=== PATIENT | female | born 1965 | race Caucasian/White ===

== ENCOUNTER 2020-01-25 14:29 | Outpatient (CLI) | payer MEDICARE, MEDICAID, SELFPAY ==
--- NOTE | ~2020-01-25 | MR_ITS ---
EXAMINATION: MR ankle LT wo con DATE: 01/25/2020 15:55 INDICATION: Lateral left ankle pain post twisting injury 2 months prior. TECHNIQUE: Magnetic resonance imaging (MRI) of the left ankle was performed without intravenous contr ast. Sequences included sagittal, coronal, and axial proton-density weighted fast spin echo without a nd with fat saturation. COMPARISON: None. FINDINGS: Medial ankle ligaments: Deep altered ligament is normal. There is mild thickening of the anterior superficial deltoid ligamen t and the superomedial component of the spring ligament complex without significant surrounding edema consistent with scarring related to chronic sprain. Lateral ankle ligaments: The anterior and posterior inferior tibiofibular ligaments are normal. The calcaneofibular and curer foam rubber ior talofibular ligaments are normal. Thickening of the anterior talofibular ligament also without kong rrounding edema consistent with mild scarring related to chronic sprain. Tendons: Achilles tendon is normal. The peroneus longus and brevis tendons are normal. The tibialis anterior a nd extensor hallucis longus and extensor digitorum longus tendons are normal. The tibialis posterior, flexor digitorum longus and flexor hallucis longus tendons are normal. Plantar fascia: Plantar aponeurosis is normal. Bones/other: Bone alignment is normal. Normal marrow signal with no fracture, reactive edema or pathologic marrow replacing process. Joint spaces are normal. Fluid: Physiologic amount fluid in the joint spaces. There is a multilobulated ganglion cyst extending 2.2 c m cephalad from the dorsal aspect of the talonavicular articulation deep to the extensor tendons and measuring 10 x 11 mm in maximal orthogonal dimensions. IMPRESSION: 1. 2.2 x 1.1 x 1.0 cm multilobulated ganglion cyst dorsal to the neck of the talus and arising from t he talonavicular joint. 2. Scarring consistent with chronic sprains laterally at the anterior talofibular ligament and medial ly at the anterior superficial deltoid ligament and superomedial component of the spring ligament com plex. Reviewed, dictated and finalized at location A. IMPRESSION: 1. 2.2 x 1.1 x 1.0 cm multilobulated ganglion cyst dorsal to the neck of the ta ren and arising from the talonavicular joint. 2. Scarring consistent with chronic sprains laterally at the anterior talofibul ar ligament and medially at the anterior superficial deltoid ligament and super omedial component of the spring ligament complex.
== END 2020-01-25 14:30 | disposition home or self-care (01) ==
PROVIDERS: PCP Student in an Organized Health Care Education/Training Program; Visit Provider Student in an Organized Health Care Education/Training Program
DX: M25.572 Pain in left ankle and joints of left foot (principal); M79.89 Other specified soft tissue disorders
CPT/HCPCS: 73721

== ENCOUNTER 2020-03-10 09:08 | Outpatient (CLI) | payer MEDICARE, MEDICAID, SELFPAY ==
--- NOTE | ~2020-03-10 | CT_ITS ---
EXAMINATION: CT abdomen pelvis wo con DATE: 03/10/2020 09:40 INDICATION: Flank pain. TECHNIQUE: Computed tomography (CT) of the abdomen and pelvis was performed without intravenous contr ast. Automated exposure control and iterative reconstruction technique were employed. The dose-length product was 636.51 mGy-cm. COMPARISON: CT abdomen and pelvis 07/15/2018 FINDINGS: The visualized portions of the lung bases demonstrate minimal atelectasis. No pleural effus ion. The heart size is normal. No pericardial effusion. The liver, gallbladder, spleen, pancreas, adr enal glands, and left kidney are normal. There is a 3 mm stone in right kidney. There are no dilated loops of bowel. The appendix is not visualized. There are no pathologically enlarged lymph nodes. The re is no free intraperitoneal fluid. 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 There is mild lumbar spond ylosis. IMPRESSION: 1. 3 mm nonobstructing right kidney stone. Reviewed, dictated and finalized at location A.
== END 2020-03-10 09:09 | disposition home or self-care (01) ==
LOC: ANHIMG 09:20
PROVIDERS: PCP Student in an Organized Health Care Education/Training Program; Visit Provider Student in an Organized Health Care Education/Training Program
DX: N39.0 Urinary tract infection, site not specified (principal); R10.9 Unspecified abdominal pain; N20.0 Calculus of kidney
CPT/HCPCS: 74176

== ENCOUNTER 2020-03-13 18:33 | Emergency (ER) | payer MEDICARE, MEDICAID, SELFPAY ==
--- NOTE | ~2020-03-13 | XR_ITS ---
EXAMINATION: XR abdomen/kub 1V DATE: 03/13/2020 19:52 INDICATION: Right kidney stone. TECHNIQUE: A supine view of the abdomen on 2 radiographs was obtained. COMPARISON: CT abdomen and pelvis 03/10/2020 FINDINGS: There are no dilated loops of bowel. There is no visible urolithiasis. There are phlebolith s in the pelvis. IMPRESSION: 1. No visible urolithiasis. Reviewed, dictated and finalized at location A. L CUTTER IMPRESSION: 1. No visible urolithiasis.
--- NOTE | ~2020-03-13 | CT_ITS ---
EXAMINATION: CT abdomen pelvis wo con DATE: 03/13/2020 21:13 INDICATION: Kidney stone. TECHNIQUE: Computed tomography (CT) of the abdomen and pelvis was performed without intravenous contr ast. Automated exposure control and iterative reconstruction technique were employed. The dose-length product was 1258.62 mGy-cm. COMPARISON: CT abdomen and pelvis 03/10/2020 FINDINGS: The visualized portions of the lung bases demonstrate mild atelectasis. No pleural effusion . The heart size is normal. No pericardial effusion. The liver, gallbladder, spleen, pancreas, adrena l glands, and left kidney are normal. There is 3 mm and 1 mm stones in right kidney. There are no dil ated loops of bowel. There are no pathologically enlarged lymph nodes. There is no free intraperitone al fluid. There is mild thoracolumbar spondylosis. IMPRESSION: 1. Small nonobstructing right kidney stones. Reviewed, dictated and finalized at location A. OR INSTALLER
[2020-03-13 18:36] VITALS: BP 155/67; PULSE 102; RESP 18; TEMP 36.2; O2SAT 100
[2020-03-13 18:52] LABS: Basophils Percent Auto 0.4 % (0.2-1.2); Eosinophils Absolute Auto 0.6 K/mm3 (0-0.3); Eosinophils Percent Auto 7.1 % (0-4.4); Hematocrit 37.2 % (37.0-47.0); Hemoglobin 12.4 g/dL (12.0-15.0); Immature Granulocyte Absolute 0.02 K/mm3 (0.00-0.031); Immature Granulocyte Percent A 0.3 % (0-0.5); Lymphocytes Absolute Auto 2.49 K/mm3 (0.9-3.2); Lymphocytes Percent Auto 32.2 % (18.3-44.2); Mean Corpuscular HGB Conc 33.3 g/dl (32-36); Mean Corpuscular Volume 89.9 fl (80-100); Mean Platelet Volume 9.8 fl (7.4-10.4); Neutrophils Absolute Auto 3.6 K/mm3 (1.3-6.7); Platelet Count Result 301 k/mm3 (150-375); Red Blood Count 4.14 M/mm3 (4.2-5.4); Red Cell Distribution Width 12.6 % (11.5-14.5); White Blood Count 7.7 K/mm3 (4.5-10.0)
[2020-03-13 19:03] LABS: Anion Gap 11 mmol/L (8-16); Blood Urea Nitrogen 14 mg/dL (7-17); Calcium 9.2 mg/dL (8.4-10.2); Carbon Dioxide 26 mmol/L (22-30); Chloride 98 mmol/L (98-107); Estimated CRCL calculation 77 ml/min; Estimated Glomerular Filt Rate > 60; Glucose 104 mg/dL (65-105); Sodium 135 mmol/L (137-145)
--- NOTE | 2020-03-13 19:32 | ED.ABDPAIN ---
HPI - Abdominal Pain General Chief Complaint: Abdominal Pain Stated Complaint: kidney stone pain Time Seen by Provider: 03/13/20 19:27 History of Present Illness HPI narrative: Right lower back pain for several days. Had outpatient CT showing 3 mm non obstructing stone in the right kidney. Her PCP started her on flomax and told her to come here if not feelng better. She is not sure if she has blood in her urine, frequency or dysuria. Related Data Home Medications Medication Instructions Recorded Confirmed carbamazepine 03/13/20 duloxetine mg PO 03/13/20 gabapentin 03/13/20 pregabalin 03/13/20 03/13/20 quetiapine 03/13/20 sumatriptan succinate mg PO 03/13/20 zonisamide 03/13/20 Allergies Allergy/AdvReac Type Severity Reaction Status Date / Time ketorolac Allergy Mild ITCHING Verified 03/13/20 18:39 mirtazapine Allergy Mild Unknown Verified 03/13/20 18:39 vilazodone Allergy Mild Unknown Verified 03/13/20 18:39 amitriptyline Allergy Unknown Unknown Verified 03/13/20 18:39 gabapentin Allergy Unknown Unknown Verified 03/13/20 18:39 haloperidol Allergy Unknown Unknown Verified 03/13/20 18:39 ibuprofen Allergy Unknown MUSCLE Verified 03/13/20 18:39 CRAMPS, NAUSEA lamotrigine Allergy Unknown RASH Verified 03/13/20 18:39 paliperidone Allergy Unknown PRODUCES Verified 03/13/20 18:39 BREAST MILK trazodone Allergy Unknown Unknown Verified 03/13/20 18:39 CYANOCOBALAMIN Allergy Unknown Unknown Uncoded 03/13/20 18:39 DIPHENHYDRAMINE HCL Allergy Unknown RASH Uncoded 01/28/19 09:03 ZOLPIDEM TARTRATE Allergy Unknown Unknown Uncoded 03/13/20 18:39 Review of Systems Review of Systems: All systems reviewed & are unremarkable except as noted in HPI and below Constitutional: Constitutional: Denies fever(s) Cardiovascular: Cardiovascular: Denies chest pain Respiratory: Respiratory: Denies dyspnea Gastrointestinal: Gastrointestinal: Denies abdominal pain Musculoskeletal: Musculoskeletal: Reports back pain Neurologic: Denies weakness PMFSH Past Medical History Medical History (Updated 03/14/20 @ 03:16 by David Haley MD) Bipolar disorder Fibromyalgia HTN (hypertension) Migraine Social History Social History Gender identity (if verbalized by the patient): Female Exam Const: General: healthy appearing, no acute distress and alert Orientation/consciousness: patient oriented x3 HENMT: Head: normal to inspection Neck: Neck: normal visual inspection and no lymphadenopathy Chest: Chest palpation & inspection: no tenderness Resp: Effort & Inspection: normal respiratory effort Auscultation: clear to auscultation bilaterally, no rales, no rhonchi and no wheezes Cardio: Jugular venous distension: no JVD Rate: regular rate Rhythm: regular rhythm Heart sounds: no murmurs GI: Inspection: non-distended GI Palp: Yes Soft to palpation and No Tenderness to palpation present (GI) Back/Spine/Pelvis: Back: CVA tenderness (Right) Skin: General skin exam: normal color Neuro: General: patient oriented x3 and moves all extremities Speech: normal speech Extrem: General: no edema Psych: Appearance: well kempt Affect: Anxious affect present Course Vital Signs Vital signs: Vital Signs Temperature 36.2 C L 03/13/20 18:36 Pulse Rate 102 H 03/13/20 18:36 Respiratory Rate 18 03/13/20 18:36 Blood Pressure 155/67 H 03/13/20 18:36 Pulse Oximetry 100 03/13/20 18:36 Temperature 37.1 C 03/13/20 22:38 Pulse Rate 82 03/13/20 22:38 Respiratory Rate 16 03/13/20 22:38 Blood Pressure 114/65 03/13/20 22:38 Pulse Oximetry 99 03/13/20 22:38 MDM - Abdominal Pain MDM Narrative Medical decision making narrative: SHe has a h/o low back pain. I feel that this is most likely related to that. It is not likely that her nonobstructing stone is causing her pain. Medical Records Attestation: I reviewed the patient's medical records. Lab Data Attestation: I reviewed t
[2020-03-13 20:39] LABS: Add Urine Microscopic? YES; Appearance Urine Clear (Clear); Bilirubin Urine Negative (Negative); Blood Urine Negative (Negative); Color Urine Yellow (Yellow); Glucose Urine UA Negative (Negative); Ketones Urine Negative (Negative); Leukocyte Esterase Ur Trace LEU/UL (Negative); Mucus Urine Rare /lpf; Nitrate Urine Negative (Negative); Protein Urine 1+ mg/dL (Negative); RBC Urine 0-2 /hpf (0-2); Specific Grav Ur 1.024 (1.001-1.035); Squamous Epithelial Cell Urine Rare /hpf (Few); Urobilinogen Urine Negative mg/dL (<2.0)
[2020-03-13 22:38] VITALS: BP 114/65; PULSE 82; RESP 16; TEMP 37.1; O2SAT 99
== END 2020-03-13 22:39 | disposition home or self-care (01) ==
PROVIDERS: Emergency Medicine; Emergency Provider Emergency Medicine; PCP Student in an Organized Health Care Education/Training Program
DX: M54.5 Low back pain (principal); N20.0 Calculus of kidney; F31.9 Bipolar disorder, unspecified; M79.7 Fibromyalgia; I10 Essential (primary) hypertension
CPT/HCPCS: 36415; 74018; 74176; 80048; 81001; 85025; 96365; 99284; J0131

== ENCOUNTER 2020-07-05 13:54 | Emergency (ER) | payer MEDICARE, MEDICAID, SELFPAY ==
--- NOTE | ~2020-07-05 | XR_ITS ---
EXAMINATION: XR foot LT min 3V DATE: 07/05/2020 14:37 INDICATION: Dropped heavy object onto the left foot TECHNIQUE: Dorsoplantar, two oblique and lateral views of the left foot were obtained. COMPARISON: None. FINDINGS: Alignment is normal. No fracture. Mild osteoarthritis at the first metatarsophalangeal and multiple i nterphalangeal joints. Small plantar calcaneal spur. Mild soft tissue swelling over the dorsum of the forefoot. IMPRESSION: 1. No acute osseous abnormality. Reviewed, dictated and finalized at location A. VISION NEWS VIDEO EDITOR
[2020-07-05 14:24] VITALS: BP 124/63; PULSE 85; RESP 16; TEMP 37.9; O2SAT 97
[2020-07-05 14:35] VITALS: BP 124/63; PULSE 85; RESP 16; TEMP 37.9; O2SAT 97
--- NOTE | 2020-07-05 14:51 | ED.LOWEXIN ---
HPI - Extremity Injury (Lower) General Chief Complaint: Extremity Injury, Lower Stated Complaint: left foot Time Seen by Provider: 07/05/20 14:02 Source: patient Mode of arrival: ambulatory Limitations: no limitations History of Present Illness HPI Narrative: 54-year-old female presents to [facility] with complaints of left foot pain, bruising and abrasion to dorsal aspect of left foot since last night. patient states that the symptoms started after a bench fell on her foot at her home. Patient has been elevating her foot and applying ice with minimal relief. Patient reports that she also started with a low-grade fever, body aches and shills since this AM. Patient denies cough, congestion, shortness of breath, wheezing, nausea, vomiting or diarrhea. 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 Patient reports that she had Covid back in March. Patient reports that she did receive an infusion yesterday for her neuropathy reports that she does sometimes run fevers afterwards. Patient denies sick contacts. Patient denies recent travel. MD complaint: foot injury Onset (ago): day(s) (1) Injury: Left: foot Place: home Relieving factors: nothing Exacerbating factors: weight bearing and movement Related Data Home Medications Medication Instructions Recorded Confirmed duloxetine 30 mg PO DAILY 03/13/20 gabapentin 400 mg PO QID 03/13/20 pregabalin 200 mg PO TID 03/13/20 03/13/20 quetiapine 300 mg PO HS 03/13/20 sumatriptan succinate 100 mg PO Q12H PRN 03/13/20 zonisamide 100 mg PO BID 03/13/20 atorvastatin 80 mg PO DAILY 07/05/20 07/05/20 cetirizine 10 mg PO DAILY 07/05/20 07/05/20 fluticasone propionate 1 spray INTRANASAL DAILY 07/05/20 07/05/20 immune globul G-gly-IgA avg 46 1,050 ml IV MONTHLY 07/05/20 07/05/20 [Gamunex-C] lisinopril-hydrochlorothiazide 1 tablet PO DAILY 07/05/20 07/05/20 onabotulinumtoxinA [Botox] 100 unit IM Q3M 07/05/20 07/05/20 ondansetron HCl 4 mg PO Q6H PRN 07/05/20 07/05/20 oxycodone 5 mg PO Q12H PRN 07/05/20 07/05/20 pantoprazole 40 mg PO BID 07/05/20 07/05/20 tamsulosin 0.4 mg PO DAILY 07/05/20 07/05/20 tizanidine 4 mg PO BID 07/05/20 07/05/20 Allergies Allergy/AdvReac Type Severity Reaction Status Date / Time ketorolac Allergy Mild ITCHING Verified 03/13/20 18:39 mirtazapine Allergy Mild Unknown Verified 03/13/20 18:39 vilazodone Allergy Mild Unknown Verified 03/13/20 18:39 amitriptyline Allergy Unknown Unknown Verified 03/13/20 18:39 gabapentin Allergy Unknown Unknown Verified 07/05/20 14:19 haloperidol Allergy Unknown Unknown Verified 03/13/20 18:39 ibuprofen Allergy Unknown MUSCLE Verified 03/13/20 18:39 CRAMPS, NAUSEA lamotrigine Allergy Unknown RASH Verified 03/13/20 18:39 paliperidone Allergy Unknown PRODUCES Verified 03/13/20 18:39 BREAST MILK trazodone Allergy Unknown Unknown Verified 03/13/20 18:39 Sulfa (Sulfonamide Allergy Unknown Verified 07/05/20 14:19 Antibiotics) CYANOCOBALAMIN Allergy Unknown Unknown Uncoded 03/13/20 18:39 DIPHENHYDRAMINE HCL Allergy Unknown RASH Uncoded 01/28/19 09:03 ZOLPIDEM TARTRATE Allergy Unknown Unknown Uncoded 03/13/20 18:39 Review of Systems Constitutional: Constitutional: Reports chills, Reports fatigue, Reports fever(s) and Denies weakness ENT: Denies dizziness, Denies nasal congestion and Denies sore throat Cardiovascular: Cardiovascular: Denies chest pain, Denies rapid heart rate and Denies slow heart rate Respiratory: Respiratory: Denies cough, Denies dyspnea and Denies wheezing Gastrointestinal: Gastrointestinal: Denies abdominal pain, Denies diarrhea, Denies nausea and Denies vomiting Musculoskeletal: Musculoskeletal: Reports arthralgias Comments: left foot pain Integumentary/Breasts: Skin/Breast: Denies rash Neurologic: Denies vertigo and Denies dizziness PMFSH Past Medical History Medical History Bipolar disorder Fibromyal
== END 2020-07-05 15:08 | disposition home or self-care (01) ==
PROVIDERS: Emergency Provider Nurse Practitioner Family; PCP Student in an Organized Health Care Education/Training Program
DX: M79.672 Pain in left foot (principal); R50.9 Fever, unspecified; M79.7 Fibromyalgia; I10 Essential (primary) hypertension; F31.9 Bipolar disorder, unspecified
CPT/HCPCS: 73630; 81003; 87077; 87086; 87088; 99213; G0463

== ENCOUNTER 2021-05-17 09:55 | Emergency (ER) | payer MEDICARE, MEDICAID, SELFPAY ==
[2021-05-17 10:10] VITALS: BP 131/67; PULSE 84; RESP 16; TEMP 36.6; O2SAT 100
--- NOTE | 2021-05-17 11:38 | ED.URI ---
HPI - URI/Sore Throat General Chief Complaint: Upper Respiratory Infection Stated Complaint: sob Time Seen by Provider: 05/17/21 11:38 Source: patient, RN notes reviewed and old records reviewed Mode of arrival: ambulatory Limitations: no limitations History of Present Illness HPI Narrative: 55-year-old female who presents to [facility] with complaints of headache, scratchy throat, nasal drainage, headache,cough with expectoration of yellowish-green mucus for the past 2 days. Patient states she has had Covid vaccination has not had flu vaccine, last Covid testing done was 1 week ago. Patient states cough is productive and she has pressure in her chest with the cough voice is hoarse and throat is painful. Patient has not taken any [id number] medications is prone to migraines with any type of Tylenol or ibuprofen use. MD elicited complaint: cough and other (Scratchy throat) Related Data Home Medications Medication Instructions Recorded Confirmed duloxetine 60 mg PO DAILY 03/13/20 05/17/21 gabapentin 400 mg PO QID 03/13/20 05/17/21 pregabalin 200 mg PO TID 03/13/20 05/17/21 quetiapine 300 mg PO HS 03/13/20 05/17/21 zonisamide 100 mg PO BID 03/13/20 05/17/21 atorvastatin 80 mg PO DAILY 07/05/20 05/17/21 cetirizine 10 mg PO DAILY 07/05/20 05/17/21 fluticasone propionate 1 spray INTRANASAL DAILY 07/05/20 05/17/21 immune globul G-gly-IgA avg 46 1,050 ml IV MONTHLY 07/05/20 05/17/21 [Gamunex-C] lisinopril-hydrochlorothiazide 1 tablet PO DAILY 07/05/20 05/17/21 onabotulinumtoxinA [Botox] 100 unit IM Q3M 07/05/20 05/17/21 ondansetron HCl 4 mg PO Q6H PRN 07/05/20 05/17/21 oxycodone 5 mg PO Q12H PRN 07/05/20 05/17/21 pantoprazole 40 mg PO BID 07/05/20 05/17/21 tizanidine 4 mg PO BID 07/05/20 05/17/21 rimegepant [Nurtec ODT] 75 mg PO ONCE PRN 05/17/21 05/17/21 Allergies Allergy/AdvReac Type Severity Reaction Status Date / Time ketorolac Allergy Mild ITCHING Verified 05/17/21 11:27 mirtazapine Allergy Mild Unknown Verified 05/17/21 11:27 vilazodone Allergy Mild Unknown Verified 05/17/21 11:27 amitriptyline Allergy Unknown Unknown Verified 05/17/21 11:27 gabapentin Allergy Unknown Unknown Verified 05/17/21 11:27 haloperidol Allergy Unknown Unknown Verified 05/17/21 11:27 ibuprofen Allergy Unknown MUSCLE Verified 05/17/21 11:27 CRAMPS, NAUSEA lamotrigine Allergy Unknown RASH Verified 05/17/21 11:27 paliperidone Allergy Unknown PRODUCES Verified 05/17/21 11:27 BREAST MILK trazodone Allergy Unknown Unknown Verified 05/17/21 11:27 Sulfa (Sulfonamide Allergy Unknown Verified 05/17/21 11:27 Antibiotics) CYANOCOBALAMIN Allergy Unknown Unknown Uncoded 03/13/20 18:39 DIPHENHYDRAMINE HCL Allergy Unknown RASH Uncoded 01/28/19 09:03 ZOLPIDEM TARTRATE Allergy Unknown Unknown Uncoded 03/13/20 18:39 Review of Systems Review of Systems: CONSTITUTIONAL: Positive fever, chills, or sweats. EYES: Denies visual changes, redness, or discharge. ENT: Positive rhinorrhea, congestion, sore throat, no otalgia. CARDIOVASCULAR: Positive chest pressure with cough, no palpitations, or edema. RESPIRATORY: Positive cough or dyspnea. GASTROINTESTINAL: Denies abdominal pain, nausea, vomiting, or diarrhea. GENITOURINARY: Denies dysuria or hematuria. SKIN: Denies rash or itching. MUSCULOSKELETAL: Denies back pain, joint pain, body aches NEUROLOGIC: Positive headache, no numbness, or weakness. PSYCHIATRIC Positive for history of anxiety or depression. All systems reviewed & are unremarkable except as noted in HPI and below PMFSH Past Medical History Medical History (Updated 05/18/21 @ 00:00 by Roby Miner) Bipolar disorder Fibromyalgia HTN (hypertension) Migraine Surgical History Surgical History (Updated 05/18/21 @ 06:40 by Dorinda Gill NP) H/O tubal ligation History of inguinal hernia repair Hx of arthroscopy of right knee Family History Family History (Updated 05/18/21 @ 06:40 by Dorinda Gill NP) Sibling
== END 2021-05-17 12:40 | disposition home or self-care (01) ==
PROVIDERS: Emergency Provider Registered Nurse; PCP Student in an Organized Health Care Education/Training Program
DX: J32.9 Chronic sinusitis, unspecified (principal); J02.9 Acute pharyngitis, unspecified; Z20.822 Contact with and (suspected) exposure to COVID-19; M79.7 Fibromyalgia; I10 Essential (primary) hypertension; F31.9 Bipolar disorder, unspecified
CPT/HCPCS: 87081; 87426; 87880; 99213; C9803; G0463

== ENCOUNTER 2021-07-11 16:10 | Emergency (ER) | payer MEDICARE, MEDICAID, SELFPAY ==
--- NOTE | ~2021-07-11 | XR_ITS ---
EXAMINATION: XR hand LT min 3V EXAM DATE: 07/11/2021 16:30 INDICATION: Injury/pain X 3 Weeks Ago, Pain In 5th Digit . TECHNIQUE: Left hand frontal, lateral and oblique projections obtained and reviewed. There is no stephanie or study for comparison. FINDINGS: Left 5th metacarpal base contour which could be old or possibly subacute fracture, check fo r point tenderness. This finding has been indicated, marked on the examination for review, clinical c orrelation. No other suspicious findings, fingers are unremarkable aside from mild polyarticular prim mic osteoarthritis. IMPRESSION: Left 5th metacarpal base shape suspected more likely chronic and subacute finding. Reviewed, dictated and finalized at location B. IC HEALTH TECHNICIAN IMPRESSION: Left 5th metacarpal base shape suspected more likely chronic and s ubacute finding.
[2021-07-11 16:15] VITALS: BP 168/98; PULSE 106; RESP 17; TEMP 36.4; O2SAT 98
--- NOTE | 2021-07-11 16:23 | ED.GENADULT ---
HPI - General Adult General Chief complaint: Unspecified Stated complaint: thumb pain x 3 weeks Time Seen by Provider: 07/11/21 16:24 Source: patient Mode of arrival: ambulatory Limitations: no limitations History of Present Illness HPI narrative: Patient is a 55-year-old female that presents to the emergency department for evaluation of left thumb pain. Patient states that she initially injured her thumb when she was scraping ice off of her car 4 weeks ago. Patient reports pain at the site, worsening pain with movement. Pain is sharp, aching in nature in the left thumb. No radiation into the wrist. No associated swelling, redness. Patient did not fall or otherwise injure it. Patient has been taking ibuprofen, Tylenol with minimal improvement in her symptoms. Patient states she came to the emergency department today to make sure that there was no broken bone. Patient denies any overlying color change, bruising. No significant swelling. She denies numbness or weakness. Patient does report history of broken bone base of left fifth digit. Related Data Home Medications Medication Instructions Recorded Confirmed duloxetine 60 mg PO DAILY 03/13/20 05/17/21 gabapentin 400 mg PO QID 03/13/20 05/17/21 pregabalin 200 mg PO TID 03/13/20 05/17/21 quetiapine 300 mg PO HS 03/13/20 05/17/21 zonisamide 100 mg PO BID 03/13/20 05/17/21 atorvastatin 80 mg PO DAILY 07/05/20 05/17/21 cetirizine 10 mg PO DAILY 07/05/20 05/17/21 fluticasone propionate 1 spray INTRANASAL DAILY 07/05/20 05/17/21 immune globul G-gly-IgA avg 46 1,050 ml IV MONTHLY 07/05/20 05/17/21 [Gamunex-C] lisinopril-hydrochlorothiazide 1 tablet PO DAILY 07/05/20 05/17/21 onabotulinumtoxinA [Botox] 100 unit IM Q3M 07/05/20 05/17/21 ondansetron HCl 4 mg PO Q6H PRN 07/05/20 05/17/21 oxycodone 5 mg PO Q12H PRN 07/05/20 05/17/21 pantoprazole 40 mg PO BID 07/05/20 05/17/21 tizanidine 4 mg PO BID 07/05/20 05/17/21 rimegepant [Nurtec ODT] 75 mg PO ONCE PRN 05/17/21 05/17/21 Allergies Allergy/AdvReac Type Severity Reaction Status Date / Time ketorolac Allergy Mild ITCHING Verified 05/17/21 11:27 mirtazapine Allergy Mild Unknown Verified 05/17/21 11:27 vilazodone Allergy Mild Unknown Verified 05/17/21 11:27 amitriptyline Allergy Unknown Unknown Verified 05/17/21 11:27 gabapentin Allergy Unknown Unknown Verified 05/17/21 11:27 haloperidol Allergy Unknown Unknown Verified 05/17/21 11:27 ibuprofen Allergy Unknown MUSCLE Verified 05/17/21 11:27 CRAMPS, NAUSEA lamotrigine Allergy Unknown RASH Verified 05/17/21 11:27 paliperidone Allergy Unknown PRODUCES Verified 05/17/21 11:27 BREAST MILK trazodone Allergy Unknown Unknown Verified 05/17/21 11:27 Sulfa (Sulfonamide Allergy Unknown Verified 05/17/21 11:27 Antibiotics) CYANOCOBALAMIN Allergy Unknown Unknown Uncoded 03/13/20 18:39 DIPHENHYDRAMINE HCL Allergy Unknown RASH Uncoded 01/28/19 09:03 ZOLPIDEM TARTRATE Allergy Unknown Unknown Uncoded 03/13/20 18:39 Review of Systems Review of Systems: CONSTITUTIONAL: Denies fever CARDIOVASCULAR: Denies chest pain RESPIRATORY: Denies cough or dyspnea. GASTROINTESTINAL: Denies abdominal pain SKIN: Denies rash MUSCULOSKELETAL: Denies back pain, reports left thumb pain NEUROLOGIC: Denies headache PMFSH Past Medical History Medical History Bipolar disorder Fibromyalgia HTN (hypertension) Migraine Surgical History Surgical History H/O tubal ligation History of inguinal hernia repair Hx of arthroscopy of right knee Family History Family History Sibling Acute myocardial infarction Mother Diabetes mellitus Father Diabetes mellitus Other Hypertension Social History Social History Smoking status: Never smoker Gender identity (if verbalized by
== END 2021-07-11 17:15 | disposition home or self-care (01) ==
LOC: ANHED 17:21
PROVIDERS: Emergency Provider Emergency Medicine; PCP Student in an Organized Health Care Education/Training Program
DX: S66.012A Strain of long flexor muscle, fascia and tendon of left thumb at wrist and hand level, initial encounter (principal); I10 Essential (primary) hypertension; M79.7 Fibromyalgia; F31.9 Bipolar disorder, unspecified
CPT/HCPCS: 73130; 99283

== ENCOUNTER 2022-10-02 10:07 | Emergency (ER) | payer MEDICARE, MEDICAID, SELFPAY ==
[2022-10-02 10:22] VITALS: BP 104/59; PULSE 115; RESP 16; TEMP 38.3; O2SAT 97
--- NOTE | 2022-10-02 10:32 | ED.ABDPAIN ---
HPI - Abdominal Pain General Chief Complaint: Abdominal Pain Stated Complaint: Abdominal Pain/Nausea/ Vomiting/Diarrhea Time Seen by Provider: 10/02/22 10:30 Source: patient and RN notes reviewed Mode of arrival: ambulatory Limitations: no limitations History of Present Illness HPI narrative: 57-year-old female presents with concern for left upper quadrant abdominal pain, vomiting, diarrhea. Reports symptoms started 3 days ago. Reports she began getting a low-grade temperature last night. She reports decreased urine output, decreased oral intake. She denies taking any medications for her symptoms. MD elicited complaint: abdominal pain Related Data Home Medications Medication Instructions Recorded Confirmed duloxetine 30 mg capsule,delayed 60 mg PO DAILY 03/13/20 10/02/22 release gabapentin 400 mg capsule 400 mg PO QID 03/13/20 10/02/22 pregabalin 200 mg capsule 200 mg PO BID 03/13/20 10/02/22 quetiapine 300 mg tablet 300 mg PO HS 03/13/20 10/02/22 zonisamide 100 mg capsule 100 mg PO BID 03/13/20 10/02/22 atorvastatin 80 mg tablet 80 mg PO DAILY 07/05/20 10/02/22 cetirizine 10 mg tablet 10 mg PO DAILY 07/05/20 10/02/22 fluticasone propionate 50 1 spray intranasal DAILY 07/05/20 10/02/22 mcg/actuation nasal spray,suspension onabotulinumtoxinA 100 unit 100 unit IM Q3M 07/05/20 10/02/22 solution for injection (Botox) ondansetron HCl 4 mg tablet 4 mg PO Q6H PRN Nausea 07/05/20 10/02/22 oxycodone 5 mg tablet 5 mg PO Q12H PRN Pain 07/05/20 10/02/22 pantoprazole 40 mg tablet,delayed 40 mg PO BID 07/05/20 10/02/22 release tizanidine 4 mg tablet 4 mg PO BID 07/05/20 10/02/22 rimegepant 75 mg disintegrating 75 mg PO ONCE PRN Migraine Headache 05/17/21 10/02/22 tablet (Nurtec ODT) buspirone 15 mg tablet 15 mg TID 10/02/22 10/02/22 lisinopril 10 mg tablet 10 mg DAILY 10/02/22 10/02/22 Allergies Allergy/AdvReac Type Severity Reaction Status Date / Time ketorolac Allergy Mild ITCHING Verified 10/02/22 10:26 mirtazapine Allergy Mild Unknown Verified 10/02/22 10:26 vilazodone Allergy Mild Unknown Verified 10/02/22 10:26 amitriptyline Allergy Unknown Unknown Verified 10/02/22 10:26 gabapentin Allergy Unknown Unknown Verified 10/02/22 10:26 haloperidol Allergy Unknown Unknown Verified 10/02/22 10:26 ibuprofen Allergy Unknown MUSCLE Verified 10/02/22 10:26 CRAMPS, NAUSEA lamotrigine Allergy Unknown RASH Verified 10/02/22 10:26 paliperidone Allergy Unknown PRODUCES Verified 10/02/22 10:26 BREAST MILK trazodone Allergy Unknown Unknown Verified 10/02/22 10:26 Sulfa (Sulfonamide Allergy Unknown Verified 10/02/22 10:26 Antibiotics) CYANOCOBALAMIN Allergy Unknown Unknown Uncoded 10/02/22 10:26 DIPHENHYDRAMINE HCL Allergy Unknown RASH Uncoded 10/02/22 10:26 ZOLPIDEM TARTRATE Allergy Unknown Unknown Uncoded 10/02/22 10:26 Review of Systems Review of Systems: CONSTITUTIONAL: Reports malaise, fever. ENT: Denies rhinorrhea, congestion, sinus pain, otalgia or sore throat. CARDIOVASCULAR: Denies chest pain, palpitations, or edema. RESPIRATORY: Denies cough or dyspnea. GASTROINTESTINAL: Reports left upper quadrant abdominal pain, nausea, vomiting, diarrhea GENITOURINARY: Denies dysuria or hematuria. Reports decreased urine output MUSCULOSKELETAL: Denies myalgia. NEUROLOGIC: Denies headache. All systems reviewed & are unremarkable except as noted in HPI and below PMFSH Past Medical History Medical History Bipolar disorder Fibromyalgia HTN (hypertension) Migraine Surgical History Surgical History H/O tubal ligation History of inguinal hernia repair Hx of arthroscopy of right knee Family History Family History Sibling Acute myocardial infarction Mother Diabetes mellitus Father Diabetes mellitus Other Hypertension Social His
== END 2022-10-02 10:43 | disposition short-term general hospital (02) ==
PROVIDERS: Emergency Provider Nurse Practitioner; PCP Student in an Organized Health Care Education/Training Program
DX: R10.12 Left upper quadrant pain (principal); M79.7 Fibromyalgia; I10 Essential (primary) hypertension; F31.9 Bipolar disorder, unspecified
CPT/HCPCS: 99212; G0463

== ENCOUNTER 2022-10-02 10:59 | Observation (INO) | payer MEDICARE, MEDICAID, SELFPAY ==
[2022-10-02] VITALS (7 sets, daily range): BP systolic 106–143; BP diastolic 54–69; PULSE 87–120; RESP 16–20; TEMP 36.5–37.3; O2SAT 95–100; BMI 49.4
--- NOTE | ~2022-10-02 | CT_ITS ---
EXAMINATION: CT abdomen pelvis wo con DATE: 10/02/2022 14:57 INDICATION: Left upper quadrant pain TECHNIQUE: Computed tomography (CT) of the abdomen and pelvis was performed without intravenous contr ast. The dose-length product was 1514.36 mGy-cm. Automated exposure control and iterative reconstruction technique were employed. COMPARISON: CT dated 03/13/2020 FINDINGS: Lung bases are unremarkable. Heart size normal. No significant pleural or pericardial effus ion. No significant vascular abnormality. No lymphadenopathy. The liver, spleen, pancreas, adrenal gl ands are unremarkable. There are punctate nonobstructing bilateral renal stones. Gallbladder contains high density debris which may represent stones or sludge. Nonobstructive bowel gas pattern. There is a long segment of abnormal thickening of the transverse an d descending colon, consistent with colitis, most likely infectious or inflammatory. No free air or f ree fluid. There is facet hypertrophy with degenerative spondylolisthesis at L4-5. There is sacraliza tion of L5. IMPRESSION: 1. Abnormal thickening of the transverse and descending colon, consistent with colitis, most likely i nfectious or inflammatory. 2: Nonobstructing bilateral nephrolithiasis. Reviewed, dictated and finalized at location B. IMPRESSION: 1. Abnormal thickening of the transverse and descending colon, consistent with colitis, most likely infectious or inflammatory. 2: Nonobstructing bilateral nephrolithiasis.
[2022-10-02 12:04] LABS: Basophils Percent Auto 0.2 % (0.2-1.2); Eosinophils Absolute Auto 0.3 K/mm3 (0-0.3); Eosinophils Percent Auto 1.2 % (0-4.4); Hemoglobin 12.1 g/dL (12.0-15.0); Immature Granulocyte Absolute 0.09 K/mm3 (0.00-0.031); Immature Granulocyte Percent A 0.4 % (0-0.5); Lymphocytes Percent Auto 15.3 % (18.3-44.2); Mean Corpuscular HGB Conc 32.7 g/dl (32-36); Mean Corpuscular Hemoglobin 28.1 pg (26-34); Mean Platelet Volume 10.4 fl (7.4-10.4); Monocytes Absolute Auto 1.8 K/mm3 (0.1-0.6); Monocytes Percent Auto 9.1 % (2.6-8.5); Neutrophils Absolute Auto 14.9 K/mm3 (1.3-6.7); Neutrophils Percent Auto 73.8 % (45.5-73.1); Platelet Count Result 306 k/mm3 (150-375); Red Cell Distribution Width 14.6 % (11.5-14.5); White Blood Count 20.2 K/mm3 (4.5-10.0)
[2022-10-02 12:14] LABS: Alanine Aminotransferase 22 U/L (6-35); Albumin Level 4.3 g/dL (3.5-5.1); Alkaline Phosphatase 146 U/L (38-126); Anion Gap 11 mmol/L (8-16); Aspartate Amino Transferase 19 U/L (14-36); Bilirubin,Total 1.1 mg/dL (0.2-1.3); Blood Urea Nitrogen 16 mg/dL (7-17); Calcium 8.8 mg/dL (8.4-10.2); Carbon Dioxide 21 mmol/L (22-30); Chloride 104 mmol/L (98-107); Estimated CRCL calculation 51 ml/min; Estimated Glomerular Filt Rate 42; Glucose 113 mg/dL (65-110); Lipase 51 U/L (23-300); Potassium 3.8 mmol/L (3.4-5.0); Sodium 136 mmol/L (137-145)
[2022-10-02 12:24] LABS: Appearance Urine Cloudy (Clear); Bacteria Urine None Seen /hpf; Bilirubin Urine Negative (Negative); Blood Urine Negative (Negative); Color Urine Yellow (Yellow); Glucose Urine UA Negative (Negative); Ketones Urine Negative (Negative); Leukocyte Esterase Ur 2+ LEU/UL (Negative); Nitrate Urine Negative (Negative); Protein Urine 2+ mg/dL (Negative); Specific Grav Ur 1.017 (1.001-1.035); Squamous Epithelial Cell Urine Moderate /hpf (Few); WBC Urine 21-50 /hpf; pH Urine 5.5 (5.0-9.0)
[2022-10-02 12:37] LABS: Add Urine Microscopic? YES
--- NOTE | 2022-10-02 14:46 | ED.GENADULT ---
HPI - General Adult General Chief complaint: Nausea/Vomiting/Diarrhea Stated complaint: from Urgent Care, mult c/o Time Seen by Provider: 10/02/22 14:06 History of Present Illness HPI narrative: 57-year-old female presented to the emergency department for evaluation of nausea vomiting and left upper quadrant pain that been ongoing for the last week. Patient reports he does have a significant history of kidney stones but primarily on the right. Patient states this pain does feel similar to her previous kidney stones but is located on the left. Related Data Home Medications Medication Instructions Recorded Confirmed duloxetine 30 mg capsule,delayed 60 mg PO DAILY 03/13/20 10/02/22 release gabapentin 400 mg capsule 400 mg PO QID 03/13/20 10/02/22 pregabalin 200 mg capsule 300 mg PO Q12H 03/13/20 10/02/22 quetiapine 300 mg tablet 400 mg PO HS 03/13/20 10/02/22 zonisamide 100 mg capsule 100 mg PO BID 03/13/20 10/02/22 atorvastatin 80 mg tablet 80 mg PO HS 07/05/20 10/02/22 onabotulinumtoxinA 100 unit 100 unit IM Q3M 07/05/20 10/02/22 solution for injection (Botox) ondansetron HCl 4 mg tablet 4 mg PO Q6H PRN Nausea 07/05/20 10/02/22 oxycodone 5 mg tablet 5 mg PO Q12H PRN Pain 07/05/20 10/02/22 pantoprazole 40 mg tablet,delayed 40 mg PO BID 07/05/20 10/02/22 release tizanidine 4 mg tablet 8 mg PO HS 07/05/20 10/02/22 rimegepant 75 mg disintegrating 75 mg PO ONCE PRN Migraine Headache 05/17/21 10/02/22 tablet (Nurtec ODT) buspirone 15 mg tablet 15 mg TID 10/02/22 10/02/22 lisinopril 10 mg tablet 10 mg DAILY 10/02/22 10/02/22 Allergies Allergy/AdvReac Type Severity Reaction Status Date / Time ketorolac Allergy Mild ITCHING Verified 10/02/22 18:09 mirtazapine Allergy Mild Unknown Verified 10/02/22 18:09 amitriptyline Allergy Unknown Other Verified 10/02/22 18:09 ibuprofen Allergy Unknown MUSCLE Verified 10/02/22 18:09 CRAMPS, NAUSEA lamotrigine Allergy Unknown RASH Verified 10/02/22 18:09 paliperidone Allergy Unknown PRODUCES Verified 10/02/22 18:09 BREAST MILK trazodone Allergy Unknown Itching Verified 10/02/22 18:09 Sulfa (Sulfonamide Allergy Hives Verified 10/02/22 18:09 Antibiotics) vilazodone AdvReac Mild Itching Verified 10/02/22 18:09 gabapentin AdvReac Unknown Other Verified 10/02/22 18:09 haloperidol AdvReac Unknown Itching Verified 10/02/22 18:09 CYANOCOBALAMIN Allergy Unknown Itching Uncoded 10/02/22 18:09 DIPHENHYDRAMINE HCL Allergy Unknown RASH Uncoded 10/02/22 18:09 ZOLPIDEM TARTRATE Allergy Unknown Unknown Uncoded 10/02/22 18:09 Review of Systems Review of Systems: All systems reviewed & are unremarkable except as noted in HPI and below PMFSH Past Medical History Medical History Bipolar disorder Fibromyalgia HTN (hypertension) Migraine Surgical History Surgical History H/O tubal ligation History of inguinal hernia repair Hx of arthroscopy of right knee Family History Family History Sibling Acute myocardial infarction Mother Diabetes mellitus Father Diabetes mellitus Other Hypertension Social History Social History Smoking status: Never smoker Alcohol intake: never Substance use: never Lack of Transportation: No Lack of Food: Never True Current Housing: I Have Housing Concerned About Future Housing: No Difficulty Paying Gas/Electric Bills: No Difficulty Paying for Meds: No Currently Unemployed: YES Education: Associate Degree Difficulty w/ Childcare or Family Care: No Gender identity (if verbalized by the patient): Female Spiritual care concerns: No Exam Narrative: APPEARANCE: Uncomfortable appearing HEAD: normocephalic, atraumatic. EYES: PERRLA/EOMI, conjunctivae clear. NOSE: Normal no drainage NECK: Supple
[2022-10-02] MEDS: SODIUM CHLORIDE 0.9% IV 1,000 ML 999 ML IV CONT (15:53)
[2022-10-02] MEDS: ONDANSETRON INJ 4 MG/2 ML VIAL IV PUSH (15:53)
[2022-10-02] MEDS: PIPERACILLN/TAZ 3.375GM/NS50ML 3.375 GM/50 ML BAG IVPB (15:53)
[2022-10-02] MEDS: HYDROmorphone HCL INJ (*CRX) 1 MG/ML SYR IV PUSH (15:54)
[2022-10-02] MEDS: SODIUM CHLORIDE 0.9% IV 1,000 ML 100 ML IV CONT (16:51)
--- NOTE | 2022-10-02 17:50 | ADMGEN ---
This patient, Trinidad Gordon, was admitted to Medical Room 258-01. Patient/family oriented to hospital policies and general routines including ID bracelet, bed and alarms, visiting hours, pain management, procedures, bathroom and other care routines, personal items, smoking policy, room service/diet, and visiting hours. Information on how to activate the Rapid Response Team has been discussed. Patient/Family are encouraged to report perceived risks to care and to ask questions if they do not understand what they are told or what they should do.
[2022-10-02] MEDS: HYDROmorphone HCL INJ (*CRX) 1 MG/ML SYR 0.5 MG IV PUSH ×2 (19:52→22:35)
--- NOTE | 2022-10-02 23:10 | PM.IMHP ---
H&P: HPI History of Present Illness Date/Time: 10/02/22 17:30 Chief Complaint: Fever, vomiting, diarrhea, abdominal pain. Narrative: This is a 57-year-old female with hypertension, hyperlipidemia, sleep apnea (CPAP on recall), and history of kidney stones who presented to the emergency department via private vehicle from urgent care for evaluation of fever, vomiting, diarrhea, and abdominal pain. She has not felt well for several days with nausea, vomiting, and multiple episodes of diarrhea a day. She has also had cramping in occasionally sharp shooting, nonradiating left-sided abdominal pain which feels somewhat similar to previous kidney stones but not exactly. Her appetite has been poor and she really has not been able to hold down anything for several days. She has been taking ibuprofen at home and tried anti motility agents for her diarrhea but neither have helped much. She endorses a fever which has been as high as 101? F. 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 No recent travel or antibiotic use. She has no personal or family history of inflammatory bowel disease. No history of C diff. Labs in the ED were significant for WBC count of 20.2, sodium 136, creatinine 1.30. CT of the abdomen and pelvis showed findings of infectious or inflammatory colitis. She has been started on Zosyn and she is being admitted to the floor for further treatment. Review of Systems Review of Systems: Twelve systems were reviewed and are negative except for as per HPI. FOR[facility] Past Medical History Medical History (Updated 10/02/22 @ 23:39 by Erika Long PA-C) Borderline personality disorder Fibromyalgia History of suicide attempt In late 20s. Hyperlipidemia Hypertension Kidney stones Migraine Obstructive sleep apnea Posttraumatic stress disorder Surgical History Surgical History (Updated 10/02/22 @ 23:14 by Erika Long PA-C) History of arthroscopy of both knees History of inguinal hernia repair History of laparoscopy History of tubal ligation Family History Family History Sibling Acute myocardial infarction Mother Diabetes mellitus Father Diabetes mellitus Other Hypertension Social History Social History (Updated 10/02/22 @ 23:40 by Erika Long PA-C) Social History: Surrogate medical decision maker: Abdoul Maki or Sammie Bloom, children. Code status: Full code. Smoking status: Never smoker Alcohol intake: never Substance use: never Lack of Transportation: No Lack of Food: Never True Current Housing: I Have Housing Concerned About Future Housing: No Difficulty Paying Gas/Electric Bills: No Difficulty Paying for Meds: No Currently Unemployed: YES Education: Associate Degree Difficulty w/ Childcare or Family Care: No Additional living arrangements comments: Lives in [place] with her cats. She has 2 grown children. 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 Spiritual care concerns: No Meds Home Medications and Allergies Home Medications Medication Instructions Recorded Confirmed Type duloxetine 30 mg capsule,delayed 60 mg PO DAILY 03/13/20 10/02/22 History release gabapentin 400 mg capsule 400 mg PO QID 03/13/20 10/02/22 History pregabalin 200 mg capsule 300 mg PO Q12H 03/13/20 10/02/22 History quetiapine 300 mg tablet 400 mg PO HS 03/13/20 10/02/22 History zonisamide 100 mg capsule 100 mg PO BID 03/13/20 10/02/22 History atorvastatin 80 mg tablet 80 mg PO HS 07/05/20 10/02/22 History onabotulinumtoxinA 100 unit 100 unit IM Q3M 07/05/20 10/02/22 History solution for injection (Botox) ondansetron HCl 4 mg tablet 4 mg PO Q6H PRN Nausea 07/05/20 10/02/22 History oxycodone 5 mg tablet 5 mg PO Q12H PRN Pain 07/05/20 10/02/22 History pantoprazole 40 mg tablet,delayed 40 mg PO BID 07/05/20 10/02/22 History release tizanidin
[2022-10-03] MEDS: busPIRone HCL 5 MG TABLET 15 MG BY MOUTH ×4 (00:04→20:59)
[2022-10-03] MEDS: TIZANIDINE HCL 4 MG TABLET 8 MG PO ×2 (00:04→20:58)
[2022-10-03] MEDS: PANTOPRAZOLE 40 MG TABLET PO ×3 (00:04→17:48)
[2022-10-03] MEDS: PIPERACILLN/TAZ 3.375GM/NS50ML 3.375 GM/50 ML BAG IVPB ×5 (00:04→23:28)
[2022-10-03] MEDS: PREGABALIN (*CRX) 75 MG CAPSULE 300 MG PO ×3 (00:04→20:57)
[2022-10-03] MEDS: ATORVASTATIN 40 MG TABLET 80 MG PO ×2 (00:04→20:57)
[2022-10-03] MEDS: ZONISAMIDE 100 MG CAPSULE PO ×3 (00:05→17:48)
[2022-10-03] MEDS: SODIUM CHLORIDE 0.9% IV 1,000 ML 100 ML IV CONT ×4 (00:08→20:56)
[2022-10-03] MEDS: GABAPENTIN 400 MG CAPSULE PO ×5 (00:48→20:57)
[2022-10-03] MEDS: QUEtiapine FUMARATE XR 200 MG TAB.ER.24H 400 MG PO ×2 (00:48→20:56)
[2022-10-03 05:22] LABS: Hematocrit 33.7 % (37.0-47.0); Hemoglobin 10.5 g/dL (12.0-15.0); Mean Corpuscular HGB Conc 31.2 g/dl (32-36); Mean Corpuscular Volume 89.9 fl (80-100); Mean Platelet Volume 10.5 fl (7.4-10.4); Platelet Count Result 273 k/mm3 (150-375); Red Blood Count 3.75 M/mm3 (4.2-5.4); Red Cell Distribution Width 14.6 % (11.5-14.5); White Blood Count 15.8 K/mm3 (4.5-10.0)
[2022-10-03 05:33] LABS: Anion Gap 11 mmol/L (8-16); Blood Urea Nitrogen 15 mg/dL (7-17); Calcium 8.3 mg/dL (8.4-10.2); Carbon Dioxide 23 mmol/L (22-30); Chloride 105 mmol/L (98-107); Estimated CRCL calculation 44 ml/min; Estimated Glomerular Filt Rate 36; Glucose 116 mg/dL (65-110); Magnesium 2.1 mg/dL (1.6-2.3); Potassium 3.9 mmol/L (3.4-5.0); Sodium 139 mmol/L (137-145)
[2022-10-03 05:43] VITALS: BP 100/57; PULSE 75; RESP 18; TEMP 36.6; O2SAT 91
[2022-10-03] MEDS: HYDROmorphone HCL INJ (*CRX) 1 MG/ML SYR 0.5 MG IV PUSH (12:23)
[2022-10-03] MEDS: DULoxetine HCL 60 MG CAPSULE.DR PO (12:24)
[2022-10-03 14:05] VITALS: BP 121/60; PULSE 91; RESP 20; TEMP 36.8; O2SAT 94
--- NOTE | 2022-10-03 14:08 | PM.IMPN ---
Progress Note: A&P Assessment and Plan (1) Colitis: Code(s): K52.9 - Noninfective gastroenteritis and colitis, unspecified Status: Acute Assessment and Plan: Presumed infectious colitis. Continue IV zosyn. Stool cultures including C diff ordered, however patient has not had any bowel movements this admission. Await collection. Leukocytosis improving. Patient afebrile (2) Dehydration: Code(s): E86.0 - Dehydration Status: Acute Assessment and Plan: Volume status has improved with IV fluid hydration. Continue gentle IV fluids until matter tolerating diet. Monitor volume status (3) Elevated serum creatinine: Code(s): R79.89 - Other specified abnormal findings of blood chemistry Status: Acute Assessment and Plan: Baseline creatinine appears to be 0.7-0.8. Creatinine on presentation 1.3. Slight increase today to 1.5. Continue IV fluids. Monitor BMP. Consider renal US if no improvement (4) Abnormal urinalysis: Code(s): R82.90 - Unspecified abnormal findings in urine Status: Acute Assessment and Plan: Patient is asymptomatic. Urine culture with growth of 1-9000 CFU Group B Strep. Given pt is asymptomatic, no need for antibiotics, however pt remains on zosyn for colitis (5) Hypertension: Code(s): I10 - Essential (primary) hypertension Status: Acute Assessment and Plan: Blood pressures are remaining stable, low end of normal. Hold lisinopril for now. (6) Obstructive sleep apnea: Code(s): G47.33 - Obstructive sleep apnea (adult) (pediatric) Status: Acute Assessment and Plan: Not currently using her CPAP as it was recalled. She does not wish to use one in the hospital. (7) Borderline personality disorder: Code(s): F60.3 - Borderline personality disorder Status: Acute Assessment and Plan: No acute issues or harmful thoughts. Continue home medications. Subjective Date/time seen: 10/03/22 14:08 Interval history: Date of service: 10/03/2022 Trinidad Batista is a 57-year-old female with history of hypertension hyperlipidemia, TARIK, kidney stones, who is seen in follow-up for colitis. Today patient complains of left lower quadrant pain which she rates as 8/10 and describes as sharp and stabbing in nature. S her pain became more severe only this afternoon. Earlier today, she had some bloating and discomfort but no significant pain. She denies nausea, vomiting, fever, or chills. She has been able to tolerate clear liquids. States her last bowel movement was 2 days ago reports that she has been having frequent diarrhea at home. No bowel movements during admission. She denies dysuria, hematuria, urgency, frequency. Review of Systems Review of Systems: Twelve systems were reviewed and are negative except for as per HPI. All systems reviewed & are unremarkable except as noted in HPI and below Exam Narrative: General: Obese, well-appearing 57-year-old female, sitting up in bed, comfortable, NARD Neuro: awake, alert and oriented x4, speech clear, no focal neuro deficits noted HEENMT: normocephalic, atraumatic, EOMI, sclerae anicteric, moist oral mucosa Respiratory: clear to auscultation bilaterally, nonlabored breathing Cardio: regular rate, regular rhythm with S1-S2 Abdomen: nondistended, normoactive bowel sounds, soft, tender to palpation in LLQ Extremities: no edema, erythema, or tenderness to palpation, DP pulses 2+ bilaterally Skin: no rashes or lesions, warm and dry Psych: appropriate mood and affect, judgment and insight intact Objective Data Vital Signs Vital Signs: Vital Signs - 24 hr 10/02/22 17:34 10/02/22 17:53 10/02/22 17:50 Temperature 97.7 F Pulse Rate 94 100 Respiratory Rate 16 20 Blood Pressure 111/54 L 143/65 H Pulse Oximetry 98 100 Oxygen Delivery Room Air 10/02/22 20:00 10/02/22 21:41 10/02/22 23:20 Temperature 98.3 F
[2022-10-03 21:06] LABS: Toxigenic C. Diff NEGATIVE (NEGATIVE)
[2022-10-03 21:46] VITALS: BP 123/67; PULSE 84; RESP 14; TEMP 37.2; O2SAT 98
[2022-10-04 04:55] VITALS: BP 145/67; PULSE 82; RESP 16; TEMP 36.7; O2SAT 97
[2022-10-04 05:05] LABS: Hemoglobin 9.8 g/dL (12.0-15.0); Mean Corpuscular HGB Conc 31.6 g/dl (32-36); Mean Corpuscular Hemoglobin 28.1 pg (26-34); Mean Corpuscular Volume 88.8 fl (80-100); Mean Platelet Volume 10.7 fl (7.4-10.4); Platelet Count Result 265 k/mm3 (150-375); Red Blood Count 3.49 M/mm3 (4.2-5.4); Red Cell Distribution Width 14.5 % (11.5-14.5); White Blood Count 12.1 K/mm3 (4.5-10.0)
[2022-10-04 05:13] LABS: Anion Gap 9 mmol/L (8-16); Blood Urea Nitrogen 11 mg/dL (7-17); Calcium 8.3 mg/dL (8.4-10.2); Carbon Dioxide 22 mmol/L (22-30); Chloride 108 mmol/L (98-107); Estimated CRCL calculation 60 ml/min; Estimated Glomerular Filt Rate 51; Glucose 107 mg/dL (65-110); Potassium 3.7 mmol/L (3.4-5.0); Sodium 139 mmol/L (137-145)
[2022-10-04] MEDS: PIPERACILLN/TAZ 3.375GM/NS50ML 3.375 GM/50 ML BAG IVPB ×2 (06:05→12:42)
[2022-10-04] MEDS: GABAPENTIN 400 MG CAPSULE PO ×2 (08:18→12:18)
[2022-10-04] MEDS: PANTOPRAZOLE 40 MG TABLET PO (08:18)
[2022-10-04] MEDS: busPIRone HCL 5 MG TABLET 15 MG BY MOUTH (08:18)
[2022-10-04] MEDS: ZONISAMIDE 100 MG CAPSULE PO (08:18)
[2022-10-04] MEDS: SODIUM CHLORIDE 0.9% IV 1,000 ML 100 ML IV CONT (08:18)
[2022-10-04] MEDS: ENOXAPARIN 40 MG/0.4 ML SYRINGE SUB-Q (08:18)
[2022-10-04] MEDS: PREGABALIN (*CRX) 75 MG CAPSULE 300 MG PO (08:23)
[2022-10-04] MEDS: HYDROcodone/acetaminophen (*CRX) 5-325 MG TABLET 1 TAB PO (08:23)
[2022-10-04] MEDS: DULoxetine HCL 60 MG CAPSULE.DR PO (12:18)
--- NOTE | 2022-10-04 13:06 | PM.DS ---
DS: Admitting Diagnosis Discharge Date 10/04/2022 Admitting Diagnosis Colitis DS: Discharge Diagnosis Discharge Diagnosis (1) Colitis: Code(s): K52.9 - Noninfective gastroenteritis and colitis, unspecified Status: Acute Assessment and Plan: Presumed infectious colitis. No personal or family history of IBD. Treated with IV Zosyn. C. diff PCR negative. Additional stool cultures negative, salmonella/shigella pending at time of discharge. Leukocytosis improved. Patient remained afebrile. Will continue with Levaquin and Flagyl as an outpatient to complete a 7 day course of antibiotics. (2) Dehydration: Code(s): E86.0 - Dehydration Status: Acute Assessment and Plan: Secondary to diarrhea from colitis. Volume status improved with IV fluid rehydration. Patient was euvolemic and was tolerating oral intake. Encouraged to maintain adequate oral hydration (3) Elevated serum creatinine: Code(s): R79.89 - Other specified abnormal findings of blood chemistry Status: Acute Assessment and Plan: Baseline creatinine appears to be 0.7-0.8. Creatinine elevated to 1.5 during admission, likely due to dehydration. Lisinopril held during admission. Renal function improved with IV fluids, creatinine down to 1.1 at time of discharge (4) Abnormal urinalysis: Code(s): R82.90 - Unspecified abnormal findings in urine Status: Acute Assessment and Plan: Patient is asymptomatic. Urine culture with growth of 1-9000 CFU Group B Strep. Given pt is asymptomatic, no need for antibiotics (5) Hypertension: Code(s): I10 - Essential (primary) hypertension Status: Acute Assessment and Plan: Blood pressures remained stable. Home lisinopril was resumed with improvement in renal function (6) Obstructive sleep apnea: Code(s): G47.33 - Obstructive sleep apnea (adult) (pediatric) Status: Acute Assessment and Plan: Not currently using her CPAP as it was recalled. Follow-up with PCP (7) Borderline personality disorder: Code(s): F60.3 - Borderline personality disorder Status: Acute Assessment and Plan: No acute issues or harmful thoughts. Continue home medications. DS: Summary Hospital Course Hospital Course: Date of admission: 10/02/2022 Date of discharge: 10/04/2022 Trinidad Gordon is a 57 year old female with a history of hypertension, hyperlipidemia, TARIK, kidney stones who presented to the emergency department on 10/02/2022 with complaints of nausea and vomiting. On presentation to the ED, she was tachycardic with additional vital signs stable, WBC 20.2, creatinine 1.3, UA slightly abnormal, additional laboratory workup relatively unremarkable, CT of abdomen/pelvis showed abnormal thickening of the transverse and descending colon consistent with colitis, most likely infectious or inflammatory. Patient was admitted to the hospitalist service for further evaluation and management. Please see above for further details. She had symptomatic improvement with IV antibiotics and IV fluids. She is able to advance to a bland diet and tolerated this well. Patient was very eager for discharge home to attend her daughter's wedding tomorrow. She fell overall much improved and was comfortable with plans for discharge home. We discussed worrisome signs and symptoms for which to return and she was educated on her medications. She was discharged in hemodynamically stable condition on 10/04/2022 Time Spent with Patient Time attestation: Total time spent providing and/or coordinating discharge services: 40 minutes Time spent: Greater than 30 minutes Exam Narrative: General: Obese, well-appearing 57-year-old female, sitting up in bed, comfortable, NARD Neuro: awake, alert and oriented x4, speech clear, no focal neuro deficits noted HEENMT: normocephalic, atraumatic, EOMI, sclerae anicteric, moist oral mucosa Re
== END 2022-10-04 14:42 | disposition home or self-care (01) ==
LOC: ANHED 15:30 → ANH2MED 17:35 → ANH3MEDSUR 10-08 10:46
PROVIDERS: Physician Assistant; Admitting Provider Internal Medicine; Emergency Provider Emergency Medicine; PCP Student in an Organized Health Care Education/Training Program; Visit Provider Physician Assistant
DX: K52.9 Noninfective gastroenteritis and colitis, unspecified (principal); E86.0 Dehydration; R79.89 Other specified abnormal findings of blood chemistry; R82.90 Unspecified abnormal findings in urine; I10 Essential (primary) hypertension; G47.33 Obstructive sleep apnea (adult) (pediatric); Z99.89 Dependence on other enabling machines and devices; N17.9 Acute kidney failure, unspecified; N20.0 Calculus of kidney; D72.829 Elevated white blood cell count, unspecified; F31.9 Bipolar disorder, unspecified; M79.7 Fibromyalgia; E78.5 Hyperlipidemia, unspecified; F60.3 Borderline personality disorder; F43.10 Post-traumatic stress disorder, unspecified; G43.909 Migraine, unspecified, not intractable, without status migrainosus; Z79.891 Long term (current) use of opiate analgesic; Z79.899 Other long term (current) drug therapy; Z82.49 Family history of ischemic heart disease and other diseases of the circulatory system
CPT/HCPCS: 36415; 74176; 80048; 80053; 81001; 81025; 83690; 83735; 85025; 85027; 87045; 87086; 87088; 87269; 87272; 87427; 87493; 96361; 96365; 96366; 96372; 96375; 96376; 99285; A9270; G0378; J1170; J1650; J2405; J2543; J7030

== ENCOUNTER 2023-04-22 15:50 | Emergency (ER) | payer MEDICARE, MEDICAID, SELFPAY ==
--- NOTE | ~2023-04-22 | CT_ITS ---
EXAMINATION: CT abdomen pelvis w con DATE: 04/22/2023 17:26 INDICATION: abd pain/bloating, diarrhea TECHNIQUE: Computed tomography (CT) of the abdomen and pelvis was performed with 100 mL Omnipaque-350 intravenous contrast. Automated exposure control and iterative reconstruction technique were employe d. The dose-length product was 1406.57 mGy-cm. COMPARISON: 10/02/2022. FINDINGS: Lower thorax: Aortic valve and coronary artery calcification. Liver: Normal. Biliary/Gallbladder: Dependent slight hyperdensity may reflect stones or sludge. No bile duct dilatio n. Pancreas: No mass or duct dilation. Spleen: Normal. Adrenals:No mass. Kidneys: No suspicious mass, obstructing stone, or hydronephrosis. 2 mm right lower pole and punctate left lower pole nonobstructing calcifications. GI tract: Very minimal distal esophageal and gastric wall edema. Small uncomplicated duodenal diverti culum. No small or large bowel dilation. Appendix not visualized, presumably surgically absent. Mesentery/Peritoneum: No ascites, mass, or free air. Retroperitoneum: No mass. Atherosclerotic abdominal aortic and/or arterial calcifications. Pelvis: Pelvic organs are within normal limits. Soft Tissues: Soft tissues and body wall unremarkable. Bones: No acute osseous finding. IMPRESSION: Mild esophagitis/gastritis. No other acute abdominopelvic process detected. Reviewed, dictated and finalized at location [facility]. [facility]
[2023-04-22 15:56] VITALS: BP 176/86; PULSE 105; RESP 20; TEMP 37.2; O2SAT 99
[2023-04-22 16:22] LABS: Basophils Percent Auto 0.4 % (0.2-1.2); Eosinophils Absolute Auto 0.2 K/mm3 (0-0.3); Eosinophils Percent Auto 1.6 % (0-4.4); Hemoglobin 12.4 g/dL (12.0-15.0); Immature Granulocyte Absolute 0.02 K/mm3 (0.00-0.031); Immature Granulocyte Percent A 0.2 % (0-0.5); Lymphocytes Absolute Auto 3.29 K/mm3 (0.9-3.2); Lymphocytes Percent Auto 29.9 % (18.3-44.2); Mean Corpuscular HGB Conc 31.8 g/dl (32-36); Mean Corpuscular Hemoglobin 27.1 pg (26-34); Mean Corpuscular Volume 85.3 fl (80-100); Mean Platelet Volume 10.5 fl (7.4-10.4); Monocytes Absolute Auto 1.3 K/mm3 (0.1-0.6); Monocytes Percent Auto 11.5 % (2.6-8.5); Neutrophils Absolute Auto 6.2 K/mm3 (1.3-6.7); Neutrophils Percent Auto 56.4 % (45.5-73.1); Platelet Count Result 301 k/mm3 (150-375); Red Blood Count 4.57 M/mm3 (4.2-5.4); Red Cell Distribution Width 13.3 % (11.5-14.5)
[2023-04-22 16:31] LABS: Alanine Aminotransferase 34 U/L (6-35); Albumin Level 4.5 g/dL (3.5-5.1); Alkaline Phosphatase 140 U/L (38-126); Anion Gap 11 mmol/L (8-16); Aspartate Amino Transferase 35 U/L (14-36); Bilirubin,Total 0.5 mg/dL (0.2-1.3); Blood Urea Nitrogen 14 mg/dL (7-17); Calcium 9.6 mg/dL (8.4-10.2); Carbon Dioxide 17 mmol/L (22-30); Chloride 107 mmol/L (98-107); Estimated CRCL calculation 77 ml/min; Estimated Glomerular Filt Rate > 60; Glucose 140 mg/dL (65-110); Lipase 90 U/L (23-300); Potassium 3.2 mmol/L (3.4-5.0); Sodium 135 mmol/L (137-145)
--- NOTE | 2023-04-22 17:11 | ED.NAVMDI ---
HPI - Nausea/Vomiting/Diarrhea General Chief complaint: Nausea/Vomiting/Diarrhea Stated complaint: abd pain Time Seen by Provider: 04/22/23 17:45 Source: patient Mode of arrival: ambulatory Limitations: no limitations History of Present Illness HPI Narrative: This is a 57 year old female that presents to the ER for abdominal pain and bloating. Associated with fevers and diarrhea. Ongoing over the last 2 days. Her PCP sent her for further evaluation. Reports some nausea. Denies vomiting. Related Data Home Medications Medication Instructions Recorded Confirmed duloxetine 30 mg capsule,delayed 60 mg PO DAILY 03/13/20 10/02/22 release gabapentin 400 mg capsule 400 mg PO QID 03/13/20 10/02/22 pregabalin 200 mg capsule 300 mg PO Q12H 03/13/20 10/02/22 zonisamide 100 mg capsule 100 mg PO BID 03/13/20 10/02/22 atorvastatin 80 mg tablet 80 mg PO HS 07/05/20 10/02/22 onabotulinumtoxinA 100 unit 100 unit IM Q3M 07/05/20 10/02/22 solution for injection (Botox) ondansetron HCl 4 mg tablet 4 mg PO Q6H PRN Nausea 07/05/20 10/02/22 oxycodone 5 mg tablet 5 mg PO Q12H PRN Pain 07/05/20 10/02/22 pantoprazole 40 mg tablet,delayed 40 mg PO BID 07/05/20 10/02/22 release tizanidine 4 mg tablet 8 mg PO HS 07/05/20 10/02/22 rimegepant 75 mg disintegrating 75 mg PO ONCE PRN Migraine Headache 05/17/21 10/02/22 tablet ([facility]) buspirone 15 mg tablet 15 mg TID 10/02/22 10/02/22 lisinopril 10 mg tablet 10 mg DAILY 10/02/22 10/02/22 quetiapine 400 mg tablet,extended 400 mg PO HS 10/03/22 10/03/22 release 24 hr Allergies Allergy/AdvReac Type Severity Reaction Status Date / Time ketorolac Allergy Mild ITCHING Verified 04/22/23 18:45 mirtazapine Allergy Mild Unknown Verified 04/22/23 18:45 amitriptyline Allergy Unknown Other Verified 04/22/23 18:45 ibuprofen Allergy Unknown MUSCLE Verified 04/22/23 18:45 CRAMPS, NAUSEA lamotrigine Allergy Unknown RASH Verified 04/22/23 18:45 paliperidone Allergy Unknown PRODUCES Verified 04/22/23 18:45 BREAST MILK trazodone Allergy Unknown Itching Verified 04/22/23 18:45 Sulfa (Sulfonamide Allergy Hives Verified 04/22/23 18:45 Antibiotics) vilazodone AdvReac Mild Itching Verified 04/22/23 18:45 gabapentin AdvReac Unknown Other Verified 04/22/23 18:45 haloperidol AdvReac Unknown Itching Verified 04/22/23 18:45 CYANOCOBALAMIN Allergy Unknown Itching Uncoded 10/02/22 18:09 DIPHENHYDRAMINE HCL Allergy Unknown RASH Uncoded 10/02/22 18:09 ZOLPIDEM TARTRATE Allergy Unknown Unknown Uncoded 10/02/22 18:09 Review of Systems Review of Systems: CONSTITUTIONAL: Reports fever GASTROINTESTINAL: Reports abdominal pain, nausea, and diarrhea. Denies vomiting GENITOURINARY: Denies dysuria or hematuria. All systems reviewed & are unremarkable except as noted in HPI and below PMFSH Past Medical History Medical History (Updated 04/22/23 @ 18:07 by Tami Beltran PA-C) Borderline personality disorder Fibromyalgia History of suicide attempt In late 20s. Hyperlipidemia Hypertension Kidney stones Migraine Obstructive sleep apnea Posttraumatic stress disorder Surgical History Surgical History (Updated 10/02/22 @ 23:14 by Erika Long PA-C) History of arthroscopy of both knees History of inguinal hernia repair History of laparoscopy History of tubal ligation Family History Family History Sibling Acute myocardial infarction Mother Diabetes mellitus Father Diabetes mellitus Other Hypertension Social History Social History (Updated 10/02/22 @ 23:40 by Erika Long PA-C) Social History: Surrogate medical decision maker: Abdoul Maki or Sammie Bloom, children. Code status: Full code. Smoking status: Never smoker Alcohol intake: never Substance use: never Lack of Transportation: No Lack of Food: Never True Current Housing: I Have Housing Concerned About Future Housing: No Difficulty P
[2023-04-22 17:24] LABS: Magnesium 2.1 mg/dL (1.6-2.3)
[2023-04-22] MEDS: PANTOPRAZOLE SODIUM IV 40 MG VIAL IV PUSH (17:56)
[2023-04-22] MEDS: POTASSIUM CHLORIDE 20 MEQ ER TABLET 40 MEQ PO (17:56)
[2023-04-22] MEDS: ONDANSETRON INJ 4 MG/2 ML VIAL IV PUSH (17:56)
[2023-04-22 18:19] VITALS: BP 156/81; PULSE 96; RESP 18; O2SAT 99
[2023-04-22 19:02] LABS: Influenza A QL RT-PCR Negative (Negative); Influenza B QL RT-PCR Negative (Negative); SARS-CoV-2 RNA PCR Negative (Negative)
[2023-04-22 19:17] VITALS: BP 136/83; PULSE 89; RESP 20; O2SAT 98
== END 2023-04-22 19:19 | disposition home or self-care (01) ==
PROVIDERS: Emergency Medicine; Emergency Provider Physician Assistant; PCP Student in an Organized Health Care Education/Training Program
DX: K29.00 Acute gastritis without bleeding (principal); Z20.822 Contact with and (suspected) exposure to COVID-19; M79.7 Fibromyalgia; I10 Essential (primary) hypertension; E78.5 Hyperlipidemia, unspecified; Z87.442 Personal history of urinary calculi; G47.30 Sleep apnea, unspecified
CPT/HCPCS: 36415; 74177; 80053; 83690; 83735; 85025; 87636; 96374; 96375; 99284; A9270; C9113; J2405; Q9967

== ENCOUNTER 2023-08-11 12:16 | Emergency (ER) | payer MEDICARE, MEDICAID, SELFPAY ==
[2023-08-11 12:26] VITALS: BP 152/90; PULSE 117; RESP 20; TEMP 36.6; O2SAT 99
[2023-08-11 12:51] LABS: Appearance Urine Cloudy (Clear); Bacteria Urine None Seen /hpf; Bilirubin Urine Negative (Negative); Blood Urine 3+ (Negative); Color Urine Yellow (Yellow); Glucose Urine UA Negative (Negative); Ketones Urine Negative (Negative); Leukocyte Esterase Ur 2+ LEU/UL (Negative); Nitrate Urine Negative (Negative); Non Pathogenic Casts 0-2; Protein Urine 1+ mg/dL (Negative); RBC Urine >100 /hpf (0-2); Squamous Epithelial Cell Urine None Seen /hpf (Few); Urobilinogen Urine 0.2 mg/dL (<2.0); WBC Urine >100 /hpf (0-3)
[2023-08-11 12:56] LABS: Add Urine Microscopic? YES
[2023-08-11 13:33] VITALS: BP 93/62; PULSE 90; RESP 16; O2SAT 100
--- NOTE | 2023-08-11 13:39 | ED.GENADULT ---
HPI - General Adult General Chief complaint: Urogenital-Female Stated complaint: urinary issues Time Seen by Provider: 08/11/23 13:22 Source: patient Mode of arrival: ambulatory Limitations: no limitations History of Present Illness HPI narrative: 58-year-old with a history of hypertension, fibromyalgia with the complaints of having dysuria, lower abdominal pain and pressure-like symptoms for past few days. Patient states that she had a recent sexual intercourse ever since then she states her private are all swollen. She denies any fever or chills. She has chronic low back pain. Denies any vaginal bleeding or discharge. Related Data Home Medications Medication Instructions Recorded Confirmed duloxetine 30 mg capsule,delayed 60 mg PO DAILY 03/13/20 10/02/22 release gabapentin 400 mg capsule 400 mg PO QID 03/13/20 10/02/22 pregabalin 200 mg capsule 300 mg PO Q12H 03/13/20 10/02/22 zonisamide 100 mg capsule 100 mg PO BID 03/13/20 10/02/22 atorvastatin 80 mg tablet 80 mg PO HS 07/05/20 10/02/22 onabotulinumtoxinA 100 unit 100 unit IM Q3M 07/05/20 10/02/22 solution for injection (Botox) ondansetron HCl 4 mg tablet 4 mg PO Q6H PRN Nausea 07/05/20 10/02/22 oxycodone 5 mg tablet 5 mg PO Q12H PRN Pain 07/05/20 10/02/22 pantoprazole 40 mg tablet,delayed 40 mg PO BID 07/05/20 10/02/22 release tizanidine 4 mg tablet 8 mg PO HS 07/05/20 10/02/22 rimegepant 75 mg disintegrating 75 mg PO ONCE PRN Migraine Headache 05/17/21 10/02/22 tablet ([facility] ODT) buspirone 15 mg tablet 15 mg TID 10/02/22 10/02/22 lisinopril 10 mg tablet 10 mg DAILY 10/02/22 10/02/22 quetiapine 400 mg tablet,extended 400 mg PO HS 10/03/22 10/03/22 release 24 hr Allergies Allergy/AdvReac Type Severity Reaction Status Date / Time ketorolac Allergy Mild ITCHING Verified 08/11/23 12:39 mirtazapine Allergy Mild Unknown Verified 08/11/23 12:39 amitriptyline Allergy Unknown Other Verified 08/11/23 12:39 ibuprofen Allergy Unknown MUSCLE Verified 08/11/23 12:39 CRAMPS, NAUSEA lamotrigine Allergy Unknown RASH Verified 08/11/23 12:39 paliperidone Allergy Unknown PRODUCES Verified 08/11/23 12:39 BREAST MILK trazodone Allergy Unknown Itching Verified 08/11/23 12:39 Sulfa (Sulfonamide Allergy Hives Verified 08/11/23 12:39 Antibiotics) vilazodone AdvReac Mild Itching Verified 08/11/23 12:39 gabapentin AdvReac Unknown Other Verified 08/11/23 12:39 haloperidol AdvReac Unknown Itching Verified 08/11/23 12:39 CYANOCOBALAMIN Allergy Unknown Itching Uncoded 08/11/23 12:39 DIPHENHYDRAMINE HCL Allergy Unknown RASH Uncoded 08/11/23 12:39 ZOLPIDEM TARTRATE Allergy Unknown Unknown Uncoded 08/11/23 12:39 Review of Systems Review of Systems: All systems reviewed & are unremarkable except as noted in HPI and below Constitutional: Constitutional: Reports no additional constitutional complaints Eyes: Eyes: Reports no additional eye complaints ENT: Reports system reviewed and no additional complaints, except as documented Cardiovascular: Cardiovascular: Reports no additional cardiovascular complaints Respiratory: Respiratory: Reports no additional respiratory complaints Gastrointestinal: Gastrointestinal: Reports no additional gastrointestinal complaints Genitourinary: Genitourinary: Reports as per HPI Neurologic: Reports system reviewed and no additional complaints, except as documented Psychiatric: Psychiatric: Reports no additional psychiatric complaints [facility] Past Medical History Medical History Borderline personality disorder Fibromyalgia History of suicide attempt In late 20s. Hyperlipidemia Hypertension Kidney stones Migraine Obstructive sleep apnea Posttraumatic stress disorder Surgical History Surgical History History of arthroscopy of both knees History of inguinal hernia repair History of laparoscopy History of tubal liga
== END 2023-08-11 13:53 | disposition home or self-care (01) ==
LOC: ANHED 13:51
PROVIDERS: Emergency Provider Family Medicine; PCP Student in an Organized Health Care Education/Training Program
DX: N39.0 Urinary tract infection, site not specified (principal); I10 Essential (primary) hypertension; E78.5 Hyperlipidemia, unspecified; M79.7 Fibromyalgia; G47.33 Obstructive sleep apnea (adult) (pediatric); F60.3 Borderline personality disorder; F43.10 Post-traumatic stress disorder, unspecified; Z87.442 Personal history of urinary calculi
CPT/HCPCS: 81001; 87086; 99283

== ENCOUNTER 2023-12-02 19:00 | Emergency (ER) | payer MEDICARE, MEDICAID, SELFPAY ==
--- NOTE | ~2023-12-02 | XR_ITS ---
EXAMINATION: XR chest 2V Exam Date/Time: 12/02/2023 19:57 CDT HISTORY: weakness Comparison: 02/14/2017. RESULT: Lines, tubes, and devices: None. Lungs and pleura: Clear. Cardiomediastinal silhouette: Stable. Other: No acute osseous or upper abdominal finding. IMPRESSION: No acute cardiopulmonary process. Reviewed, dictated and finalized at location [facility].
--- NOTE | 2023-12-02 19:30 | ECG_ITS ---
Test Date: 2023-12-02 19:41:46 Measurements Intervals [place] Rate: 87 P: 37 AK: 175 QRS: 35 QRSD: 86 T: 23 QT: 356 QTc: 428 Interpretive Statements SINUS RHYTHM LOW QRS VOLTAGE IN PRECORDIAL LEADS BORDERLINE ECG No previous ECG available for comparison Electronically Signed On 12-03-2023 06:25:29 CDT by Jacques Rowland D.O.
[2023-12-02 19:37] VITALS: BP 138/66; PULSE 93; RESP 16; TEMP 36.8; O2SAT 99
[2023-12-02 20:09] LABS: Basophils Percent Auto 0.3 % (0.2-1.2); Eosinophils Absolute Auto 0.6 K/mm3 (0-0.3); Eosinophils Percent Auto 4.6 % (0-4.4); Hematocrit 39.1 % (37.0-47.0); Hemoglobin 12.4 g/dL (12.0-15.0); Immature Granulocyte Absolute 0.03 K/mm3 (0.00-0.031); Immature Granulocyte Percent A 0.2 % (0-0.5); Lymphocytes Percent Auto 38.1 % (18.3-44.2); Mean Corpuscular HGB Conc 31.7 g/dl (32-36); Mean Corpuscular Hemoglobin 27.9 pg (26-34); Mean Corpuscular Volume 87.9 fl (80-100); Monocytes Absolute Auto 0.7 K/mm3 (0.1-0.6); Neutrophils Absolute Auto 6.1 K/mm3 (1.3-6.7); Neutrophils Percent Auto 50.8 % (45.5-73.1); Platelet Count Result 329 k/mm3 (150-375); Red Blood Count 4.45 M/mm3 (4.2-5.4); Red Cell Distribution Width 14.3 % (11.5-14.5); White Blood Count 12.1 K/mm3 (4.5-10.0)
[2023-12-02 20:20] LABS: Alanine Aminotransferase 18 U/L (6-35); Albumin Level 4.7 g/dL (3.5-5.1); Alkaline Phosphatase 138 U/L (38-126); Anion Gap 14 mmol/L (4-12); Aspartate Amino Transferase 20 U/L (14-36); Bilirubin,Total 0.3 mg/dL (0.2-1.3); Blood Urea Nitrogen 10 mg/dL (7-17); Calcium 9.1 mg/dL (8.4-10.2); Carbon Dioxide 23 mmol/L (22-30); Chloride 101 mmol/L (98-107); Estimated CRCL calculation 61 ml/min; Estimated Glomerular Filt Rate 57; Glucose 128 mg/dL (65-110); Potassium 3.8 mmol/L (3.4-5.0); Sodium 138 mmol/L (137-145)
[2023-12-02 21:06] LABS: Influenza A QL RT-PCR Negative (Negative); Influenza B QL RT-PCR Negative (Negative); RSV RNA, RT-PCR Negative (Negative); SARS-CoV-2 RNA PCR Negative (Negative)
[2023-12-02 21:56] LABS: Appearance Urine Clear (Clear); Bilirubin Urine Negative (Negative); Blood Urine Negative (Negative); Color Urine Yellow (Yellow); Glucose Urine UA Negative (Negative); Ketones Urine Negative (Negative); Leukocyte Esterase Ur 2+ LEU/UL (Negative); Nitrate Urine Negative (Negative); Non Pathogenic Casts 0-2; Protein Urine Negative (Negative); RBC Urine 0-2 /hpf (0-2); Specific Grav Ur 1.006 (1.001-1.035); Squamous Epithelial Cell Urine None Seen /hpf (Few); Urobilinogen Urine 0.2 mg/dL (<2.0); WBC Urine 21-50 /hpf (0-3)
[2023-12-02 22:05] LABS: Bacteria Urine 1+ /hpf
[2023-12-02 22:06] LABS: Add Urine Microscopic? YES
[2023-12-02 22:40] VITALS: BP 133/75; PULSE 76; RESP 20; O2SAT 97
[2023-12-03] VITALS: BP 131/76; PULSE 70; RESP 16; O2SAT 97
[2023-12-03] MEDS: SODIUM CHLORIDE 0.9% IV 2,000 ML 999 ML IV CONT (01:15)
[2023-12-03] MEDS: ACETAMINOPHEN 500 MG TABLET 1000 MG PO (01:16)
--- NOTE | 2023-12-03 01:40 | ED.GENADULT ---
HPI - General Adult General Chief complaint: Weakness Stated complaint: weakness Time Seen by Provider: 12/02/23 22:27 History of Present Illness HPI narrative: This is a 58-year-old female presenting ED with chief weakness. She states she was exposed to COVID on 11/27 is been feeling weak signed and. She has had decreased appetite and 1 episode of diarrhea. No fevers chest pain difficulty breathing or abdominal pain. He does note increased urinary frequency. Related Data Home Medications Medication Instructions Recorded Confirmed duloxetine 30 mg capsule,delayed 60 mg PO DAILY 03/13/20 10/02/22 release gabapentin 400 mg capsule 400 mg PO QID 03/13/20 10/02/22 pregabalin 200 mg capsule 300 mg PO Q12H 03/13/20 10/02/22 zonisamide 100 mg capsule 100 mg PO BID 03/13/20 10/02/22 atorvastatin 80 mg tablet 80 mg PO HS 07/05/20 10/02/22 onabotulinumtoxinA 100 unit 100 unit IM Q3M 07/05/20 10/02/22 solution for injection (Botox) ondansetron HCl 4 mg tablet 4 mg PO Q6H PRN Nausea 07/05/20 10/02/22 oxycodone 5 mg tablet 5 mg PO Q12H PRN Pain 07/05/20 10/02/22 pantoprazole 40 mg tablet,delayed 40 mg PO BID 07/05/20 10/02/22 release tizanidine 4 mg tablet 8 mg PO HS 07/05/20 10/02/22 rimegepant 75 mg disintegrating 75 mg PO ONCE PRN Migraine Headache 05/17/21 10/02/22 tablet ([facility] ODT) buspirone 15 mg tablet 15 mg TID 10/02/22 10/02/22 lisinopril 10 mg tablet 10 mg DAILY 10/02/22 10/02/22 quetiapine 400 mg tablet,extended 400 mg PO HS 10/03/22 10/03/22 release 24 hr Allergies Allergy/AdvReac Type Severity Reaction Status Date / Time ketorolac Allergy Mild ITCHING Verified 12/02/23 22:45 mirtazapine Allergy Mild Unknown Verified 12/02/23 22:45 amitriptyline Allergy Unknown Other Verified 12/02/23 22:45 ibuprofen Allergy Unknown MUSCLE Verified 12/02/23 22:45 CRAMPS, NAUSEA lamotrigine Allergy Unknown RASH Verified 12/02/23 22:45 paliperidone Allergy Unknown PRODUCES Verified 12/02/23 22:45 BREAST MILK trazodone Allergy Unknown Itching Verified 12/02/23 22:45 Sulfa (Sulfonamide Allergy Hives Verified 12/02/23 22:45 Antibiotics) vilazodone AdvReac Mild Itching Verified 12/02/23 22:45 gabapentin AdvReac Unknown Other Verified 12/02/23 22:45 haloperidol AdvReac Unknown Itching Verified 08/11/23 12:39 CYANOCOBALAMIN Allergy Unknown Itching Uncoded 08/11/23 12:39 DIPHENHYDRAMINE HCL Allergy Unknown RASH Uncoded 08/11/23 12:39 ZOLPIDEM TARTRATE Allergy Unknown Unknown Uncoded 08/11/23 12:39 PMFSH Past Medical History Medical History Borderline personality disorder Fibromyalgia History of suicide attempt In late 20s. Hyperlipidemia Hypertension Kidney stones Migraine Obstructive sleep apnea Posttraumatic stress disorder Surgical History Surgical History History of arthroscopy of both knees History of inguinal hernia repair History of laparoscopy History of tubal ligation Family History Family History Sibling Acute myocardial infarction Mother Diabetes mellitus Father Diabetes mellitus Other Hypertension Social History Social History Social History: Surrogate medical decision maker: Abdoul Maki or Sammie Bloom, children. Code status: Full code. Smoking status: Never smoker Alcohol intake: never Substance use: never Lack of Transportation: No Lack of Food: Never True Current Housing: I Have Housing Concerned About Future Housing: No Difficulty Paying Gas/Electric Bills: No Difficulty Paying for Meds: No Currently Unemployed: YES Education: Associate Degree Difficulty w/ Childcare or Family Care: No Additional living arrangements comments: Lives in [place] with her cats. She has 2 grown children. Additional occupation/education commen
[2023-12-03 02:00] VITALS: BP 126/74; PULSE 62; RESP 15; O2SAT 99
== END 2023-12-03 02:55 | disposition home or self-care (01) ==
PROVIDERS: Emergency Medicine; Emergency Provider Emergency Medicine; PCP Student in an Organized Health Care Education/Training Program
DX: R53.1 Weakness (principal); N39.0 Urinary tract infection, site not specified; E86.0 Dehydration; Z20.822 Contact with and (suspected) exposure to COVID-19; F60.3 Borderline personality disorder; M79.7 Fibromyalgia; E78.5 Hyperlipidemia, unspecified; I10 Essential (primary) hypertension; Z87.442 Personal history of urinary calculi; G47.30 Sleep apnea, unspecified
CPT/HCPCS: 36415; 71046; 80053; 81001; 85025; 87086; 87088; 87637; 93005; 96361; 96365; 99284; A9270; J0696; J7030